=== PATIENT | male | born 1935 | race Caucasian/White ===

== ENCOUNTER 2019-11-26 10:24 | Emergency (ER) | payer MEDICARE, OTHER, SELFPAY ==
[2019-11-26 10:27] VITALS: BP 118/83; PULSE 75; RESP 18; TEMP 36.9; O2SAT 96; BMI 28.5
--- NOTE | 2019-11-26 10:52 | HMH.EDGENADL ---
ED Disposition Clinical Impression: Fever that comes and goes, Examination, medical, general Disposition: Home, Self-Care Condition on Discharge: Good Instructions: DI for Fever (Symptom) -- Adult Additional Instructions: You have been evaluated after a fever at home. We have not found a source of infection. Please follow-up with your primary care doctor tomorrow. Return to the emergency department if you have any new or worsening symptoms, headache, neck pain, abdominal pain, vomiting, chest pain, other concerns. Referrals: Danae Hunter APRN [Primary Care Provider] - Time of Disposition: 12:03 - Critical Care Critical Care Time: No Attestation: On , the high probability of a clinically significant, sudden or life threatening deterioration of the following system(s) required my full and direct attention, intervention and personal management. The time I documented below is in addition to time spent performing reported procedures but includes the following listed in this critical care notation. Medical Decision Making - Medical Records Medical records reviewed: Yes: I reviewed the patient's medical records. - Mick Inquiry Pt receiving controlled substance: No Vital Signs: 11/26/19 10:27 11/26/19 11:17 11/26/19 11:30 Temperature 98.5 F Temperature Source Oral Pulse Rate [Left Radial] 75 73 72 Respiratory Rate 18 20 18 Blood Pressure [Right Arm] 118/83 113/68 123/67 Blood Pressure Mean [Right Arm] 94 83 85 Blood Pressure Source [Right Arm] Automatic Cuff Automatic Cuff Automatic Cuff Blood Pressure Position [Right Arm] Sitting Supine Supine 02 Sat by Pulse Oximetry 96 98 97 Oxygen Delivery Method Room Air Room Air Room Air - Lab Data Lab Results 11/26/19 10:56: Urine Color Yellow, Urine Appearance Clear, Urine pH 7.5, Ur Specific [place] 1.020, Urine Protein Negative, Urine Glucose (UA) Negative, Urine Ketones Negative, Urine Blood Negative, Urine Nitrate Negative, Urine Bilirubin Negative, Urine Urobilinogen 4.0, Ur Leukocyte Esterase Negative, Urine WBC 3-5, Ur Squamous Epith Cells 3-5 11/26/19 10:57: WBC 9.6, RBC 4.26 L, Hgb 13.8 L, Hct 40.3 L, MCV 94.6 H, MCH 32.4 H, MCHC 34.3, RDW 14.4, Plt Count 174, MPV 8.4, Neut % (Auto) 82.9 H, Lymph % (Auto) 10.9, [place] % (Auto) 5.5, Eos % (Auto) 0.5, Baso % (Auto) 0.3, Neut # (Auto) 8.0 H, Lymph # (Auto) 1.1, [place] # (Auto) 0.5, Eos # (Auto) 0.1, Baso # (Auto) 0.0 11/26/19 10:57: Sodium 136, Potassium 4.8, Chloride 101, Carbon Dioxide 28, Anion Gap 11.8, BUN 21 H, Creatinine 1.30 H, Estimated Creat Clear 53, Estimated GFR 53 L, Est GFR ( Amer) 64, Glucose 118 H, Calcium 9.2, Total Bilirubin 1.4 H, AST 29, ALT 19, Alkaline Phosphatase 91, Total Protein 7.1, Albumin 3.9, Globulin 3.2, Albumin/Globulin Ratio 1.2 Result diagrams: 11/26/19 10:57 11/26/19 10:57 Medical Decision Narrative: 84-year-old male presenting to the emergency department after a one-time fever at home. Patient is very well on arrival. Vital signs are stable, afebrile. No obvious source of infection based off of history and physical exam. Will obtain CBC, CMP, urinalysis, chest x-ray. Laboratory results are generally unremarkable. No evidence of leukocytosis. Chest x-ray shows no pulmonary infiltrate. Urinalysis shows no urinary tract infection. I counseled the patient that we have not found a source for his fever. He continues to be afebrile, does not appear to have systemic illness. I do not believe that blood cultures or lactate are indicated at this time. He should follow-up with his primary care doctor tomorrow. Given return precautions for any new or worsening symptoms. General Adult HPI - General Chief complaint: Fever Stated complaint: fever over 100 this morning Time Seen by Provider: 11/26/19 10:56 Mode of Arrival: Ambulatory Limitations: No Limitations Description of Symptoms (Recalled from ER Triage Doc. by RN): Pt states that around 2 this am he was
--- NOTE | 2019-11-26 10:57 | XR_ITS ---
PROCEDURE: XR CHEST 2V CLINICAL HISTORY: fever Nonsmoker. COMPARISON: No exams were available for comparison FINDINGS: No acute bony abnormalities. The cardiomediastinal silhouette and pulmonary vascularity are within normal limits. Mild atherosclerotic calcification of the aortic arch. The lungs are somewhat hyperinflated. There is no demonstrated consolidation, vascular congestion or pleural effusion of the visualized lungs. A mildly elevated right hemidiaphragm. Osteopenia. Mildly increased thoracic kyphosis. Bilateral shoulder osteoarthrosis. IMPRESSION: 1. No acute findings. Dictated by: Lilliana Ceballos 11/26/2019 11:59 Electronically signed by Lilliana Ceballos in [facility] 11/26/2019 11:59
[2019-11-26 11:05] LABS: Microscopic, Urine URINE MICROSCOPIC (MICROSCOPIC)
[2019-11-26 11:08] LABS: Basophils % 0.3 % (0.1-2.0); Eosinophils # 0.1 K/mm3 (0.0-0.4); Eosinophils % 0.5 % (0.1-12.0); Hematocrit 40.3 % (42.0-52.0); Hemoglobin 13.8 g/dL (14.1-18.0); Lymphocytes # 1.1 K/mm3 (0.7-4.5); Lymphocytes % 10.9 % (10-50); Mean Corpuscular HGB Conc 34.3 g/dL (31.8-35.4); Mean Corpuscular Hemoglobin 32.4 pg (27.0-31.2); Mean Corpuscular Volume 94.6 fl (80-94); Mean Platelet Volume 8.4 fl (7.4-10.4); Monocytes # 0.5 K/mm3 (0.1-1.0); Monocytes % 5.5 % (1.7-9.3); Neutrophils % 82.9 % (37.0-80.0); Platelet Count 174 K/mm3 (142-424); Red Blood Count 4.26 M/mm3 (4.60-6.20); Red Cell Distribution Width 14.4 % (11.5-17.5); White Blood Count 9.6 K/mm3 (4.8-10.8)
[2019-11-26 11:09] LABS: Appearance,Urine CLEAR (Clear); Bilirubin,Urine Negative (Negative); Blood, Urine Negative (Negative); Color,Urine YELLOW (Yellow); Glucose,Urine (UA) Negative (Negative); Ketones,Urine Negative (Negative); Leukocyte Esterase,Urine Negative (Negative); Nitrate,Urine Negative (Negative); PH,Urine 7.5 (5.0-8.5); Protein,Urine Negative (Negative)
[2019-11-26 11:10] LABS: Chloride 101 mmol/L (98-107)
[2019-11-26 11:11] LABS: Potassium 4.8 mmoL/L (3.5-5.1); Sodium 136 mmol/L (136-145)
[2019-11-26 11:13] LABS: Alanine Aminotransferase 19 U/L (12-78); Albumin Level 3.9 g/dl (3.5-5.0); Albumin/Globulin Ratio 1.2 (1.1-1.8); Alkaline Phosphatase 91 U/L (38-126); Anion Gap 11.8 mEq/L (5-15); Aspartate Amino Transferase 29 U/L (17-59); Bilirubin,Total 1.4 mg/dl (0.2-1.3); Blood Urea Nitrogen 21 mg/dl (9-20); Calcium 9.2 mg/dl (8.4-10.2); Carbon Dioxide 28 mmol/L (22.0-30.0); Creatinine Clearance Estimated 53 mL/min (50-200); Estimated Glomerular Filt Rate 53 ml/min (>60); GFR (African American) 64 ML/MIN (>60); Globulin 3.2 g/dL (1.3-3.2); Glucose 118 mg/dl (74-100); Total Protein,Serum 7.1 g/dl (6.3-8.2)
[2019-11-26 11:17] VITALS: BP 113/68; PULSE 73; RESP 20; O2SAT 98
[2019-11-26 11:30] VITALS: BP 123/67; PULSE 72; RESP 18; O2SAT 97
[2019-11-26 12:21] VITALS: BP 123/67; PULSE 72; RESP 18; TEMP 36.9; O2SAT 97
== END 2019-11-26 12:22 | disposition home or self-care (01) ==
PROVIDERS: Emergency Provider Emergency Medicine; PCP Nurse Practitioner
DX: R50.9 Fever, unspecified (principal); E78.5 Hyperlipidemia, unspecified; I10 Essential (primary) hypertension; Z88.5 Allergy status to narcotic agent; Z79.899 Other long term (current) drug therapy
CPT/HCPCS: 71046; 80053; 81001; 85025; 99283; 99284

== ENCOUNTER → 2021-02-01 16:06 | Outpatient (CLI) | payer MEDICARE, OTHER, SELFPAY ==
[2021-02-01 16:45] LABS: Basophils % 0.7 % (0.1-2.0); Eosinophils # 0.1 K/mm3 (0.0-0.4); Eosinophils % 2.2 % (0.1-12.0); Hemoglobin 12.9 g/dL (14.1-18.0); Lymphocytes # 1.3 K/mm3 (0.7-4.5); Lymphocytes % 22.7 % (10-50); Mean Corpuscular HGB Conc 32.2 g/dL (31.8-35.4); Mean Corpuscular Hemoglobin 31.8 pg (27.0-31.2); Mean Corpuscular Volume 98.9 fl (80-94); Mean Platelet Volume 8.9 fl (7.4-10.4); Monocytes # 0.4 K/mm3 (0.1-1.0); Monocytes % 6.2 % (1.7-9.3); Neutrophils % 68.3 % (37.0-80.0); Platelet Count 171 K/mm3 (142-424); Red Blood Count 4.04 M/mm3 (4.60-6.20); Red Cell Distribution Width 14.4 % (11.5-17.5); White Blood Count 5.9 K/mm3 (4.8-10.8)
[2021-02-01 16:53] LABS: Alanine Aminotransferase 18 U/L (12-78); Albumin Level 3.6 g/dl (3.5-5.0); Albumin/Globulin Ratio 1.2 (1.1-1.8); Alkaline Phosphatase 90 U/L (38-126); Anion Gap 10.2 mEq/L (5-15); Aspartate Amino Transferase 26 U/L (17-59); Bilirubin,Total 0.7 mg/dl (0.2-1.3); Blood Urea Nitrogen 20 mg/dl (9-20); Calcium 8.9 mg/dl (8.4-10.2); Carbon Dioxide 28 mmol/L (22.0-30.0); Chloride 107 mmol/L (98-107); Estimated Glomerular Filt Rate 58 ml/min (>60); GFR (African American) 70 ML/MIN (>60); Globulin 2.9 g/dL (1.3-3.2); Glucose 93 mg/dl (74-100); Potassium 4.2 mmoL/L (3.5-5.1); Sodium 141 mmol/L (136-145); Total Protein,Serum 6.5 g/dl (6.3-8.2)
[2021-02-01 17:25] LABS: Thyroid Stimulating Hormone 0.84 uIU/mL (0.465-4.68)
[2021-02-01 17:29] LABS: Ferritin 103 ng/ml (17.9-464)
[2021-02-01 17:59] LABS: Vitamin B12 721 pg/mL (239-931)
[2021-02-01 20:34] LABS: Erythrocyte Sedimentation Rate 20 mm/hr (0-20)
== END ==
PROVIDERS: Visit Provider Specialist
DX: G47.30 Sleep apnea, unspecified (principal); E53.8 Deficiency of other specified B group vitamins; E83.10 Disorder of iron metabolism, unspecified; G47.10 Hypersomnia, unspecified
CPT/HCPCS: 80053; 82607; 82728; 82746; 84443; 85025; 85651; G0399

== ENCOUNTER → 2021-03-29 10:59 | Outpatient (CLI) | payer MEDICARE, OTHER, SELFPAY ==
--- NOTE | 2021-03-29 11:02 | MR_ITS ---
PROCEDURE: MR LUMBAR SPINE WO CON CLINICAL INDICATION: LUMBAR DISC DISEASE COMPARISON: CT LSWO CT LUMBAR SPINE W/O CONTRAST from 06/11/2013 TECHNIQUE: Standard multiplanar multiecho sequences are performed without contrast. 3-D MIP and myelographic images are also rendered and reviewed FINDINGS: The spinal cord ends at the L1 level. T11-T12: Increased T1 and T2 signal of the disc. The disc space is narrow. T12-L1: Schmorl's node along the inferior endplate of T12. Degenerative disc disease with minimal circumferential bulging disc and mild facet and ligamentum hypertrophy with moderate bilateral foraminal narrowing. L1-L2: Circumferential bulging disc with moderate to severe facet and ligamentum hypertrophy with moderate bilateral lateral recess narrowing and moderate bilateral foraminal narrowing. L2-L3: Severe degenerative disc disease. 5 mm anterolisthesis of L2. Severe facet and ligamentum hypertrophy with severe canal stenosis and severe bilateral lateral recess narrowing and moderate to severe bilateral foraminal narrowing. L3-L4: Degenerative disc disease with moderate size circumferential bulging disc along with facet severe facet and ligamentum hypertrophic changes. Prior posterior laminectomy. The facet hypertrophic changes on the right are causing some mild impingement upon the right-sided nerve roots. Moderate to severe bilateral foraminal narrowing. 3 mm anterolisthesis of L3. L4-5: Mild circumferential bulging disc. Facet and ligamentum hypertrophic change. Moderate right and moderate to severe left foraminal narrowing. Posterior laminectomy. L5-S1: Mild circumferential bulging disc with facet and ligamentum hypertrophic change. There is severe bilateral foraminal narrowing Bilateral renal cyst. The left renal cyst along the upper pole of the left kidney measures 7.4 cm. Right renal cyst measures up to 3.9 by 3 cm. There does appear to be some internal septations of this cyst. These appear thin but are incompletely imaged. IMPRESSION: Abnormal MRI of the lumbar spine with multilevel degenerative disc disease along with bulging disc and facet and ligamentum hypertrophy resulting in areas of canal stenosis and lateral recess and foraminal narrowing. Please see above for detailed description at each level. Postsurgical changes with laminectomy at L3-L4 and L4-5. Bilateral renal cysts. Right renal cyst does contain some internal septations but these appear thin. Consider follow-up to confirm stability. Dictated by: Alin Bowen MD 03/31/2021 08:52 Alin Bowen MD in [facility] 03/31/2021 08:52
== END ==
PROVIDERS: PCP Family Medicine; Visit Provider Family Medicine
DX: M51.9 Unspecified thoracic, thoracolumbar and lumbosacral intervertebral disc disorder (principal)
CPT/HCPCS: 72148; 76376

== ENCOUNTER → 2021-06-22 13:23 | Outpatient (CLI) | payer MEDICARE, OTHER, SELFPAY ==
--- NOTE | 2021-06-22 13:28 | US_ITS ---
FINAL REPORT CLINICAL HISTORY: CLAUDICATION, EX-SMOKER, HTN, HLD FINDINGS: ANKLE/BRACHIAL INDICES FINDINGS: Pressure indices are as follows: RIGHT LOWER EXTREMITY: Ankle brachial pressure index: 1.2 Comments: Normal LEFT LOWER EXTREMITY: Ankle brachial pressure index: 1.1 Comments: Normal IMPRESSION: No evidence of significant obstructive peripheral vascular disease of the lower extremities. Reviewed, Interpreted and Dictated by Charlie Antoine MD Transcribed by Papito Gilmore Authenticated by Charlie Antoine MD on 06/22/2021 03:59:19 PM [facility]
== END ==
PROVIDERS: PCP Family Medicine; Visit Provider Family Medicine
DX: L53.9 Erythematous condition, unspecified (principal); I73.9 Peripheral vascular disease, unspecified
CPT/HCPCS: 93923

== ENCOUNTER → 2021-07-25 03:13 | Outpatient (CLI) | payer MEDICARE, OTHER, SELFPAY | PROVIDERS: Visit Provider Emergency Medicine | DX: R39.198 Other difficulties with micturition (principal) ==

== ENCOUNTER 2021-08-06 16:06 | Emergency (ER) | payer MEDICARE, OTHER, SELFPAY ==
[2021-08-06] VITALS (14 sets, daily range): BP systolic 94–162; BP diastolic 49–86; PULSE 67–107; RESP 19; TEMP 37.8–38.1; O2SAT 92–98; BMI 27.8
--- NOTE | 2021-08-06 16:34 | HMH.EDGENADL ---
ED Disposition Clinical Impression: Delirium secondary to multiple medical problems Sepsis Qualifiers: Sepsis type: sepsis due to unspecified organism Sepsis acute organ dysfunction status: with acute organ dysfunction Disposition: Xfer Other Condition on Discharge: Serious Referrals: Shayne Montalvo MD [Primary Care Provider] - - Critical Care Critical Care Time: No Attestation: On 08/06/21, the high probability of a clinically significant, sudden or life threatening deterioration of the following system(s) required my full and direct attention, intervention and personal management. The time I documented below is in addition to time spent performing reported procedures but includes the following listed in this critical care notation. Medical Decision Making - Mick Inquiry Pt receiving controlled substance: No Vital Signs: 08/06/21 16:07 08/06/21 16:14 08/06/21 16:30 Temperature 100.1 F H Temperature Source Oral Pulse Rate 101 H 101 H Pulse Rate [Right Radial] 107 H Respiratory Rate 19 Blood Pressure 150/86 H 148/78 H Blood Pressure [Right Arm] 150/86 H Blood Pressure Mean 105 101 Blood Pressure Mean [Right Arm] 107 Blood Pressure Source [Right Arm] Automatic Cuff Blood Pressure Position [Right Arm] Sitting 02 Sat by Pulse Oximetry 95 95 92 L Oxygen Delivery Method Room Air 08/06/21 17:02 08/06/21 18:01 08/06/21 18:30 Temperature Temperature Source Pulse Rate 93 H 106 H 92 H Pulse Rate [Right Radial] Respiratory Rate Blood Pressure 150/69 H 112/75 162/74 H Blood Pressure [Right Arm] Blood Pressure Mean 105 97 102 Blood Pressure Mean [Right Arm] Blood Pressure Source [Right Arm] Blood Pressure Position [Right Arm] 02 Sat by Pulse Oximetry 97 95 94 L Oxygen Delivery Method - Lab Data Lab results reviewed: Yes: I reviewed the patient's lab results. Lab Results 08/06/21 16:45: WBC 15.9 H, RBC 3.91 L, Hgb 12.7 L, Hct 36.4 L, MCV 92.9, MCH 32.4 H, MCHC 34.8, RDW 14.8, Plt Count 376, MPV 7.6, Neut % (Auto) 91.4 H, Lymph % (Auto) 4.7 L, [place] % (Auto) 3.5, Eos % (Auto) 0.1, Baso % (Auto) 0.3, Neut # (Auto) 14.5 H, Lymph # (Auto) 0.8, [place] # (Auto) 0.6, Eos # (Auto) 0.0, Baso # (Auto) 0.0, Total Counted 100, Neutrophils % (Manual) 88 H, Lymphocytes % (Manual) 9 L, Monocytes % (Manual) 3, Platelet Estimate Normal, RBC Morphology Normal 08/06/21 16:45: Sodium 128 L, Potassium 4.6, Chloride 94 L, Carbon Dioxide 27, Anion Gap 11.6, BUN 21 H, Creatinine 1.20, Estimated Creat Clear 52, Estimated GFR 58 L, Est GFR ( Amer) 70, Glucose 137 H, Calcium 8.5, Total Bilirubin 1.5 H, AST 27, ALT 36, Alkaline Phosphatase 140 H, Total Protein 7.1, Albumin 3.8, Globulin 3.3 H, Albumin/Globulin Ratio 1.2 08/06/21 16:45: Lactate 1.4 08/06/21 17:55: SARS-CoV-2 (PCR) Not detected, Influenza A Untype (PCR) Not detected, Influenza Type B (PCR) Not detected 08/06/21 18:37: Urine Color Yellow, Urine Appearance Clear, Urine pH 7.0, Ur Specific [place] 1.025, Urine Protein 1+, Urine Glucose (UA) Negative, Urine Ketones Negative, Urine Blood Trace-i, Urine Nitrate Negative, Urine Bilirubin Negative, Urine Urobilinogen 0.2, Ur Leukocyte Esterase Negative, Urine RBC 5-10, Amorphous Sediment 2+, Urine Mucus 1+ Result diagrams: 08/06/21 16:45 08/06/21 16:45 Orders (Tests/Meds): ED MEDICATIONS Generic Name Dose Route Start Last Admin Trade Name Grzegorzq PRN Reason Stop Dose Admin Vancomycin HCl 2,000 mg/ 500 mls @ 250 mls/hr 08/06/21 18:00 08/06/21 18:52 Sodium Chloride IV 08/06/21 19:59 250 mls/hr ONCE ONE Administration Vancomycin/PEG/NA[place]/Lysine/Water 1.75 gm in 350 mls @ 175 mls/hr 08/07/21 18:00 Vancomycin 1.75gm/350ml (Peg) Premix IV 08/21/21 17:59 Q24H PREM Miscellaneous 1 each 08/06/21 17:30 08/06/21 19:24 Vancomycin Consult Request * 09/05/21 17:29 1 each CONSULT PHARMACY PREM Administration Discontinued Medications Generic
--- NOTE | 2021-08-06 16:45 | XR_ITS ---
PROCEDURE INFORMATION: Exam: XR Chest Exam date and time: 08/06/2021 4:49 PM Age: 86 years old Clinical indication: Fever and other: Confusion; Patient HX: Patient recently had back surgery, now with fever, confusion, and severe back pain. ; Additional info: Fever and confusion TECHNIQUE: Imaging protocol: XR of the chest. Views: 1 view. COMPARISON: CR XR CHEST 2V 11/26/2019 10:57 AM FINDINGS: Lungs: Unremarkable. No consolidation. Pleural spaces: Unremarkable. No pleural effusion. No pneumothorax. Heart/Mediastinum: Unremarkable. No cardiomegaly. Bones/joints: Unremarkable. IMPRESSION: No acute findings.
[2021-08-06 16:57] LABS: Basophils % 0.3 % (0.1-2.0); Eosinophils % 0.1 % (0.1-12.0); Hematocrit 36.4 % (42.0-52.0); Hemoglobin 12.7 g/dL (14.1-18.0); Lymphocytes # 0.8 K/mm3 (0.7-4.5); Lymphocytes % 4.7 % (10-50); Mean Corpuscular HGB Conc 34.8 g/dL (31.8-35.4); Mean Corpuscular Hemoglobin 32.4 pg (27.0-31.2); Mean Corpuscular Volume 92.9 fl (80-94); Mean Platelet Volume 7.6 fl (7.4-10.4); Monocytes # 0.6 K/mm3 (0.1-1.0); Monocytes % 3.5 % (1.7-9.3); Neutrophils # 14.5 K/mm3 (1.8-7.8); Neutrophils % 91.4 % (37.0-80.0); Platelet Count 376 K/mm3 (142-424); Red Blood Count 3.91 M/mm3 (4.60-6.20); Red Cell Distribution Width 14.8 % (11.5-17.5); White Blood Count 15.9 K/mm3 (4.8-10.8)
[2021-08-06 16:59] LABS: MANUAL DIFFERENTIAL MANUAL DIFFERENTIAL (MANUAL DIFF)
[2021-08-06 17:05] LABS: Chloride 94 mmol/L (98-107); Potassium 4.6 mmoL/L (3.5-5.1); Sodium 128 mmol/L (136-145)
[2021-08-06 17:06] LABS: Lactic Acid 1.4 mmol/L (0.7-2.1)
[2021-08-06 17:08] LABS: Alanine Aminotransferase 36 U/L (12-78); Albumin Level 3.8 g/dl (3.5-5.0); Albumin/Globulin Ratio 1.2 (1.1-1.8); Alkaline Phosphatase 140 U/L (38-126); Aspartate Amino Transferase 27 U/L (17-59); Bilirubin,Total 1.5 mg/dl (0.2-1.3); Blood Urea Nitrogen 21 mg/dl (9-20); Calcium 8.5 mg/dl (8.4-10.2); Creatinine Clearance Estimated 52 mL/min (50-200); Estimated Glomerular Filt Rate 58 ml/min (>60); GFR (African American) 70 ML/MIN (>60); Globulin 3.3 g/dL (1.3-3.2); Glucose 137 mg/dl (74-100); Total Protein,Serum 7.1 g/dl (6.3-8.2)
[2021-08-06 17:21] LABS: Lymphocytes % 9 % (10-50); Monocytes % 3 % (2-9); Neutrophils % 88 % (42-76); Total Cells Counted 100
[2021-08-06 17:23] LABS: Platelet Estimate Normal; RBC Morphology Normal
[2021-08-06 17:24] LABS: Anion Gap 11.6 mEq/L (5-15); Carbon Dioxide 27 mmol/L (22.0-30.0)
--- NOTE | 2021-08-06 17:58 | PC.NURSE ---
Spoke with Lucio from [facility] r/t Vanc consult. He advised that it will be a 2 gram loading dose and then 1750mg Q24H if pt admitted. Lucio advised that he will enter the medication order onto the Mar.
[2021-08-06 18:10] LABS: Coronavirus 19, PCR Not Detected (NotDetected); Influenza A, PCR Not Detected (NotDetected); Influenza B, PCR Not Detected (NotDetected)
--- NOTE | 2021-08-06 18:16 | PC.NURSE ---
500mL NS was not available. This nurse verified with Sean Root RN and divided vanc dose. 1gm per 250mL bag NS at a rate of 125mL/hr.
[2021-08-06 18:39] LABS: Microscopic, Urine URINE MICROSCOPIC (MICROSCOPIC)
[2021-08-06 18:42] LABS: Appearance,Urine CLEAR (Clear); Bilirubin,Urine Negative (Negative); Blood, Urine TRACE-I (Negative); Color,Urine YELLOW (Yellow); Glucose,Urine (UA) Negative (Negative); Ketones,Urine Negative (Negative); Leukocyte Esterase,Urine Negative (Negative); Nitrate,Urine Negative (Negative); Protein,Urine 1+ (Negative); Specific Gravity, Urine 1.025 (1.005-1.030); Urobilinogen,Urine 0.2 EU/dl (0.2)
[2021-08-06 18:44] LABS: Amorphous Sediment,Urine 2+ /lpf; Mucus,Urine 1+ /lpf
--- NOTE | 2021-08-06 19:30 | PC.NURSE ---
spoke to [facility] at this time to have dr morfin paged.
--- NOTE | 2021-08-06 19:38 | PC.NURSE ---
Dr. Zhu speaking to Dr. Jesus at [facility] at this time.
--- NOTE | 2021-08-06 23:44 | PC.NURSE ---
pt repositioned at this time. Rectal temp obtained. chatman catheter emptied.
[2021-08-07 00:12] VITALS: BP 138/64; PULSE 65; RESP 16; TEMP 37.9; O2SAT 99
== END 2021-08-07 00:16 | disposition other institution (70) ==
PROVIDERS: Emergency Provider Emergency Medicine; PCP Family Medicine
DX: A41.9 Sepsis, unspecified organism (principal); R50.9 Fever, unspecified; R53.1 Weakness; R53.81 Other malaise; M54.9 Dorsalgia, unspecified; Z20.822 Contact with and (suspected) exposure to COVID-19; R41.82 Altered mental status, unspecified; D72.829 Elevated white blood cell count, unspecified; I10 Essential (primary) hypertension; E78.5 Hyperlipidemia, unspecified; J98.4 Other disorders of lung; L98.499 Non-pressure chronic ulcer of skin of other sites with unspecified severity; G96.01 Cranial cerebrospinal fluid leak, spontaneous; C80.1 Malignant (primary) neoplasm, unspecified; Z79.899 Other long term (current) drug therapy; Z88.5 Allergy status to narcotic agent; Z87.891 Personal history of nicotine dependence; Z82.49 Family history of ischemic heart disease and other diseases of the circulatory system; Z83.438 Family history of other disorder of lipoprotein metabolism and other lipidemia; Z80.9 Family history of malignant neoplasm, unspecified
CPT/HCPCS: 71045; 80053; 81001; 83605; 85007; 85025; 87040; 96365; 96367; 96375; 99285; C9803; J3370; U0003; U0005

== ENCOUNTER → 2021-08-24 15:16 | Outpatient (REF) | payer MEDICARE, OTHER, SELFPAY ==
[2021-08-24 15:53] LABS: Vancomycin,Trough 13.5 ug/mL (5.0-10.0)
== END ==
LOC: LAB.DROPOF 15:16
PROVIDERS: Visit Provider Family Medicine
DX: A41.9 Sepsis, unspecified organism (principal); Z51.81 Encounter for therapeutic drug level monitoring
CPT/HCPCS: 80202